=== PATIENT | male | born 1975 | race Caucasian/White ===

== ENCOUNTER 2017-08-23 16:27 | Emergency (ER) | payer OTHER ==
[2017-08-23] MEDS ORDERED: ASPIRIN 81 MG TABLET CHEW ONE (16:43)
[2017-08-23] MEDS ORDERED: ALLO300T PO (16:56)
[2017-08-23] MEDS ORDERED: TEST1.25 TP (16:56)
[2017-08-23] MEDS ORDERED: ASPIRIN 81 MG TABLET CHEW PO ONE (17:00)
[2017-08-23 17:06] LABS: HEMATOCRIT 48.8 % (39.2-51.8); HEMOGLOBIN 16.8 g/dL (13.7-18.0); WHITE BLOOD COUNT 5.8 x10^3/uL (3.4-10)
[2017-08-23 17:17] LABS: BLOOD UREA NITROGEN 13 mg/dL (7-18)
[2017-08-23 17:29] LABS: IS PT STATUS REG ER OR PRE ER? YES
[2017-08-23 18:00] VITALS: BP 133/89
== END 2017-08-23 18:09 | disposition home or self-care (01) ==
LOC: ED 18:03
DX: R07.89 Other chest pain (principal)
CPT/HCPCS: 36415; 71010; 80048; 82040; 84484; 85025; 93005; 99285

== ENCOUNTER → 2017-12-30 | Outpatient (CLI) | payer OTHER ==
[~2017-12-30] MED LIST: ALLO300T PO; TEST1.25 TP
== END | disposition home or self-care (01) ==
LOC: CARD 08:58
PROVIDERS: ATTEND Internal Medicine Geriatric Medicine
DX: R07.9 Chest pain, unspecified (principal); E78.1 Pure hyperglyceridemia; R73.9 Hyperglycemia, unspecified; Z87.891 Personal history of nicotine dependence
CPT/HCPCS: 93017; 93350